=== PATIENT | female | born 1955 | race Caucasian/White ===

== ENCOUNTER → 2016-11-03 | Outpatient (CLI) | payer OTHER, BC ==
[2016-10-30 15:58] LABS: BASO % 0.4 %; BASO ABS # 0.04 K/uL (0-0.2); COMPLETE YES; EOS % 2.5 %; HEMATOCRIT 50.2 % (37-47); IG% 0.3 %; LYMPH % 37.6 %; LYMPH ABS # 3.67 K/uL (1.2-3.4); MEAN CORPUSCULAR HEMOGLOBIN 31.4 pg (25-34); MEAN CORPUSCULAR HGB CONC 32.7 g/dl (32-36); MEAN PLATELET VOLUME 9.3 fL (7.4-10.4); MONO % 6.5 %; NEUT % 52.7 %; PLATELET COUNT 375 K/uL (130-400); RED BLOOD COUNT 5.23 M/uL (4.2-5.4); WHITE BLOOD COUNT 9.75 K/uL (4.8-10.8)
[2016-10-30 16:32] LABS: ALT/SGPT 25 U/L (12-78); BLOOD UREA NITROGEN 9 mg/dl (7-18); BUN/CREATININE RATIO 11.7 (10-20); CARBON DIOXIDE 32 mmol/L (21-32); CHLORIDE 104 mmol/L (98-107); CREATININE 0.77 mg/dl (0.60-1.20); GLUCOSE 102 mg/dl (70-99); POTASSIUM 3.8 mmol/L (3.5-5.1); SODIUM 142 mmol/L (136-145)
[2016-10-30 16:41] LABS: CALCIUM 9.3 mg/dl (8.5-10.1)
[2016-10-30 16:48] LABS: LYME DISEASE AB IGG NEG (NEG); LYME DISEASE AB IGM NEG (NEG)
[2016-10-30 17:07] LABS: ALB/GLOB RATIO 1.2 (0.9-2); ALKALINE PHOSPHATASE 65 U/L (45-117); AST/SGOT 18 U/L (15-37)
[~2016-11-03] MED LIST: DRGTP25 TD; DULO60CA44 PO; GADAVIST IV PRN; LISI-461 PO; LPT/20 PO; MELO7.5T7 PO; MOME0.1C33 TD; MONT1TAB3 PO; OXYC-57 PO; VTMD PO; [UNRECOGNIZED DRUG - OTHER] PO
--- NOTE | 2016-11-03 17:07 | DIAGNOSTIC IMAGING REPORT ---
CERVICAL SPINE MRI WITH AND WITHOUT CONTRAST HISTORY: Neck pain. POST CONCUSSION SYNDROME,R41.89,M54.2,R51,H81.90 TECHNIQUE: Multiplanar multisequence MRI of the cervical spine was performed both before and after the use of intravenous contrast. COMPARISON STUDY: None. FINDINGS: Straightening of the cervical spine. Alignment is intact. No fracture or subluxation. Prevertebral soft tissues and the C1-C2 interval are maintained. Mild disc space narrowing at C5-C6 and C6-C7. The visualized posterior fossa is unremarkable. The cervical spinal cord demonstrates a normal signal intensity. No abnormal enhancement. C2-C3: No significant central canal or neural foraminal narrowing. C3-C4: No significant central canal or neural foraminal narrowing. C4-C5: No significant central canal or neural foraminal narrowing. C5-C6: Broad-based posterior disc osteophyte complex which abuts and slightly deforms anterior cord. There is moderate bilateral neural foraminal narrowing. C6-C7: Small broad-based posterior osteophyte complex resulting in partial effacement of the anterior thecal sac without cord deformity. Mild bilateral neural foraminal narrowing. C7-T1: No significant central canal or neural foraminal narrowing. IMPRESSION: 1. Degenerative changes at C5-C6 and C6-C7 as described above. 2. Straightening of the cervical spine. 3. No abnormal enhancement. Electronically signed by: Kenyon Uribe M.D. 11/03/2016 5:05 PM Dictated Date/Time: 11/03/2016 5:00 PM
--- NOTE | 2016-11-03 17:14 | DIAGNOSTIC IMAGING REPORT ---
MRI OF THE BRAIN COMBO CLINICAL HISTORY: Headache and chronic neck pain. COMPARISON STUDY: CT of the brain dated 02/18/2016. TECHNIQUE: MRI of the brain was performed utilizing various T1 and T2-weighted sequences in the axial, sagittal, and coronal planes. Contrast-enhanced sequences were acquired following the administration of 5.5 cc of Gadavist. FINDINGS: Brain parenchyma: The brain parenchyma is normal in appearance. There is no hemorrhage or mass effect. There is no restricted diffusion to suggest acute ischemia. No enhancing mass lesion is identified on the postcontrast images. Mckenna-white matter differentiation is preserved. No extra-axial fluid collection is seen. The cerebellar tonsils are normal in configuration. Ventricles, sulci, and cisterns: Normal in configuration. Pituitary and sella: Unremarkable. Intracranial vasculature: Normal flow voids are maintained at the skull base. Orbits: The bony orbits are grossly intact. Orbital contents are normal in appearance. Sinuses and mastoids: Findings suggest previous paranasal sinus surgery. Trace mucosal thickening is identified within the maxillary antra. The remaining paranasal sinuses and the mastoid air cells are clear. Calvarium: Unremarkable. Cervical cord: Partially visualized cervical spinal cord is normal in morphology and signal intensity. IMPRESSION: No acute intracranial abnormality. Electronically signed by: Miguel Ibarra M.D. 11/03/2016 5:11 PM Dictated Date/Time: 11/03/2016 5:09 PM
--- NOTE | 2016-11-07 13:18 | CODING QUERY MEDICAL NECESSITY ---
SUPPORTING DIAGNOSIS NEEDED A supporting diagnosis is required for the test/procedure performed on this patient in order for us to be reimbursed by the patient's insurance. Please provide a supporting diagnosis for the following test/procedure listed below next to the test name along with your signature. *If there is no additional diagnosis for this patient that would support the following test/procedure please document that below next to the test/procedure. Test(s)/Procedure(s) that require a supporting diagnosis: DOS 10/30 * Vitamin D DIAGNOSIS: * Vitamin B12 DIAGNOSIS: * TSH DIAGNOSIS: Provider Signature: Date: Thank you Tita Velasquez Health Information Management Once completed, please kindly fax back to [phone] For questions please call [phone]
== END | disposition home or self-care (01) ==
LOC: C.MRI 14:58
PROVIDERS: ATTEND Psychiatry & Neurology Neurology
DX: R41.89 Other symptoms and signs involving cognitive functions and awareness (principal); M54.2 Cervicalgia; R51 Headache; H81.90 Unspecified disorder of vestibular function, unspecified ear; E55.9 Vitamin D deficiency, unspecified; R53.82 Chronic fatigue, unspecified